=== PATIENT | female | born 1965 | race Caucasian/White ===

== ENCOUNTER 2022-12-28 12:13 | Emergency (ER) | payer OTHER, SELFPAY ==
[2022-12-28 12:15] VITALS: BP 152/77; PULSE 64; RESP 12; TEMP 36.3; O2SAT 100; BMI 23.2
--- NOTE | 2022-12-28 13:32 | EKG12_ITS ---
Test Reason : CP Blood Pressure : / mmHG Vent. Rate : 064 BPM Atrial Rate : 064 BPM P-R Int : 164 ms QRS Dur : 090 ms QT Int : 430 ms P-R-T Axes : 066 021 057 degrees QTc Int : 443 ms Normal sinus rhythm with sinus arrhythmia Normal ECG Confirmed by SOSA GOODE, ISAAK ([id number]), brands editor MICHAEL HERNÁNDEZ ([id number]) on 12/29/2022 11:00:45 AM Referred By: DELBERT/MYAH Confirmed By:ISAAK SWAN MD
--- NOTE | 2022-12-28 13:33 | EDS_ITS ---
HPI History of Present Illness Chief Complaint: Chest Pain Detail of Chief Complaint: Chest pain Informant: patient Narrative Narrative: Patient presents to the emergency department complaint of chest pain that she has had for about a week. Patient describes a continuous discomfort or pressure in her upper chest that radiates to her back and down her left arm. It is not made worse by activity or exertion. She thought maybe it was her fibromyalgia. She became concerned because it has not gone away and she does have a significant family history of heart disease and that her father had heart attacks in his 40s. Patient denies recent travel or surgery. No history of PE or DVT. 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 PFSH PFSH Medical History no medical history Allergy/AdvReac Type Severity Reaction Status Date / Time No Known Allergies Allergy Verified 12/28/22 12:16 Social History (Updated 07/03/20 @ 10:54 by Manjeet ACUÑA, PA) Smoking Status: Never smoker ROS ROS ED Review of Systems ROS Unobtainable: other Constitutional Constitutional ED: Reports lethargy; Denies chills, fever(s), sweats or weight loss Eyes Eyes: Denies blurry vision, change in vision or diplopia ENT ENT ED: Denies rhinorrhea or sore throat Cardiovascular Cardiovascular: Reports chest pain; Denies orthopnea or racing heartbeat Respiratory/Chest Respiratory/Chest: Denies cough, dyspnea, dyspnea on exertion, orthopnea or sputum Gastrointestinal Gastrointestinal: Denies abdominal pain, diarrhea, nausea or vomiting Genitourinary Genitourinary ED: Denies dysuria, hematuria or urinary frequency Musculoskeletal Musculoskeletal: Denies arthralgias, back pain, myalgias or neck pain Integumentary Denies abscess, Abrasions or rash Neurologic Neurologic: Denies headache(s) or weakness Psychiatric Psychiatric: Denies anxiety, depression or suicidal thoughts Endocrine Endocrinology: Denies polydipsia, polyphagia or polyuria Hematologic/Lymphatic Hematologic/Lymphatic: Denies easy bleeding, easy bruising or lymphadenopathy Allergic/Immunologic Allergic/Immunologic ED: Denies mouth swelling, tongue swelling or urticaria EXAM Physical Exam Const Vital Signs: 12/28/22 12:15 12/28/22 13:49 Temperature 97.3 F L Temperature Source Temporal Pulse Rate 64 Respiratory Rate 12 Blood Pressure 152/77 H Blood Pressure Mean 102 Pulse Ox 100 Oxygen Delivery Method Room Air Room Air Positive well nourished and well developed General Appearance ED: well developed and NAD HEENT Reports TM's clear and moist mucous membranes normocephalic and atraumatic; Negative for trauma or tenderness Tympanic Membrane ED: Yes TM's clear Eyes PERRL and EOMs intact bilaterally General Eye ED: Negative for pale conjunctiva or scleral icterus Neck no lymphadenopathy, supple and no JVD General: Negative for tenderness Chest Wall inspection of chest normal and palpation of chest normal Chest: Negative for tenderness Resp normal respiratory effort and clear to auscultation bilaterally Effort and Inspection: Negative for respiratory distress or pain with movement Auscultation: Negative for rhonchi, wheezes or diminished lung sounds Cardio regular rate, regular rhythm, S1 normal heart sound, S2 normal heart sound and no murmurs Peripheral Pulses: pulses 2+ throughout GI normal to inspection, nondistended, normoactive bowel sounds, soft to palpation, non-tender, non-distended and no masses Back/Spine no CVA tenderness and no thoracic nor lumbar tenderness Extremity normal to inspection General Extremety ED: Negative for edema General Extremity: Negative for edema Neuro oriented x3, CN's II-XII intact bilaterally, no sensory deficits noted and gait normal Sensorium / Orientation: awake, alert, oriented to person, oriented to place and oriented to time Motor Exam: strength 5/5 throughout and strength abnormal Psych mental status grossly normal Skin no rashes or lesions noted and no wounds Heart Score History: Slightly/Non-Suspicious ECG: Normal Age: >45 - <65 years Risk Factors: 1 or 2 Risk Factors Troponin: </= Normal Limit Score: 2 MDM MDM MDM Narrative Medical decision making narrative: Patient presents to the emergency department with complaint of chest pain ongoing for a week. She has history of elevated cholesterol and history of fibromyalgia. Patient with family history of heart disease. IV line established on arrival. Patient placed on a laborer vegetable farm. Patient will be given aspirin. We will give her nitroglycerin ascertain if this helps alleviate her discomfort. EKG obtained arrival showed a sinus rhythm with a ventricular rate of 64 bpm with occasional PACs. In the differential would be acute coronary syndrome versus musculoskeletal pain versus PE, versus infectious etiology which I feel is less likely. Patient had essentially normal work-up here in the department clued EKG as well as CBC with differential and chemistries and normal troponin. She had a normal D-dimer. Patient's heart score is a 2. I feel she can be discharged to home. I feel she is low risk for acute coronary syndrome. Patient has had continuous pain for a week that is not exertional. Patient advised to follow-up with her primary care physician within next 3 to 5 days for Lab Data Attestation: I reviewed the patient's lab results. Labs: Laboratory Results - last 24 hr 12/28/22 13:43 WBC 5.4 RBC 3.70 L Hgb 11.9 L Hct 35.3 L MCV 95.4 MCH 32.2 H MCHC 33.7 RDW Std Deviation 46.5 H RDW Coeff of Jayson 13.2 Plt Count 255 MPV 10.5 Immature Gran % (Auto) 0.200 Neut % (Auto) 54.6 Lymph % (Auto) 37.6 [place] % (Auto) 5.4 Eos % (Auto) 1.3 Baso % (Auto) 0.9 Absolute Neuts (auto) 2.9 Absolute Lymphs (auto) 2.01 Nucleated RBC % 0 D-Dimer Quant (PE/DVT) 0.45 Sodium 139 Potassium 3.8 Chloride 109 H Carbon Dioxide 25.0 Anion Gap 5 BUN 13 Creatinine 0.72 Estim Creat Clear Calc 85.91 Est GFR (MDRD) Af Amer 106 Est GFR (MDRD) Non-Af 88 BUN/Creatinine Ratio 17.9 Glucose 95 Calcium 9.2 Troponin I High Sens 3 Radiography Diagnostic Testing: Clinical Impression(s) from Imaging Studies Chest X-Ray 12/28/22 13:50 IMPRESSION: No acute abnormality is seen. Electronically Signed: Petr Gold MD at 14:08 EDT , 1 view chest x-ray obtained interpreted by myself as no acute infiltrate or pneumothorax or acute disease process. Radiology in agreement. EKG Initial EKG: Attestation: I personally reviewed and interpreted this EKG as follows: Comments: Sinus rhythm with a ventricular rate of 64 bpm with occasional PACs Discharge Plan Triage Chief Complaint: Chest Pain Other Complaint: Headache Nausea/Vomiting ED Provider: Marty Lynn Dx/Rx/DC Orders Clinical Impression: Chest pain Instructions: ED Chest Pain, Uncertain Cause Primary Care Provider: KEYLA JANE Referrals: KEYLA JANE DO [Primary Care Provider] - 3-5 Days Disposition Disposition: Home, Self Care
[2022-12-28] MEDS: Aspirin 81 MG TAB.CHEW 324 MG PO (13:43)
[2022-12-28] MEDS: 0.9% Normal Saline 1,000 ML 150 ML IV (13:44)
--- NOTE | 2022-12-28 13:50 | RAD_ITS ---
STUDY: X-RAY CHEST REASON FOR EXAM: Female, 57 years old. Chest pain and chest pressure. Left arm. TECHNIQUE: Single AP portable view of the chest. COMPARISON: None. FINDINGS: The lungs are clear and expanded. There is no demonstrated pleural abnormality. Normal size heart. Normal mediastinum and kehinde. Normal visualized pulmonary arteries. Normal visualized aortic arch and descending thoracic aorta. There are degenerative changes of the visualized thoracic spine. Normal visualized ribs, clavicles, and shoulders. There is no demonstrated abnormality of the visualized soft tissue structures of the upper abdomen. RAD/Chest 1 View (Portable) IMPRESSION: No acute abnormality is seen. Electronically Signed: Petr Gold MD at 14:08 EDT ,
[2022-12-28 13:56] LABS: Absolute Lymphocyte Count 2.01 X10^3/uL (0.83-4.51); Absolute Neutrophil Count 2.9 X10^3/uL (2.0-7.7); Basophil# 0.05 X10^3/uL; Basophil% 0.9 % (0-1); Eosinophil# 0.07 X10^3/uL; Eosinophils% 1.3 % (0-5); Hematocrit 35.3 % (37-47); Hemoglobin 11.9 g/dL (12.0-15.0); Lymphocyte # 2.01 X10^3/ul (0.83-4.51); Lymphocyte % 37.6 % (19-41); Mean Corp Hgb Conc 33.7 g/dL (32-36); Mean Corpuscular Hgb 32.2 pg (27.0-32.0); Mean Corpuscular Volume 95.4 fL (81-99); Mean Platelet Vol. 10.5 fl (6.2-12.0); Monocyte# 0.29 X10^3/uL; Monocyte% 5.4 % (0-10); NRBC Flagged by Analyzer 0 % (0-5); Neutrophil # 2.92 X10^3/uL (2.7-7.7); Neutrophil % 54.6 % (47-70); Platelet Count 255 K/mm3 (150-450); RBC Distribution Width CV 13.2 % (11.6-14.6); RBC Distribution Width SD 46.5 fl (35.1-43.9); White Blood Count 5.4 K/mm3 (4.4-11.0)
[2022-12-28 14:03] LABS: D-Dimer Quantitative (DVT/PE) 0.45 FEU/ug/m (0.27-0.49)
--- NOTE | 2022-12-28 14:09 | ED.RN ---
pt refused nitro. Dr. Lynn notified
[2022-12-28 14:14] LABS: Anion Gap 5 (5-15); BUN 13 mg/dL (7-18); BUN/Creat Ratio 17.9 RATIO (10-20); Calcium,Total 9.2 mg/dL (8.5-10.1); Chloride 109 mmol/L (98-107); Creatinine, Serum 0.72 mg/dL (0.55-1.02); EST Glomerular Filtration Rate 88 mL/min (>60); Est Glom Filt Rate - Afr Amer 106 mL/min (>60); Estimated Creatinine Clearance 85.91 ml/min; Glucose 95 mg/dL (74-106); Potassium 3.8 mmol/L (3.5-5.1); Sodium Level 139 mmol/L (136-145); Troponin-I HS (w/2H Reflex) 3 pg/mL (3.0-54.0)
[2022-12-28 15:49] LABS: Reflex Troponin-HS? (from REC) Y
[2022-12-28 16:18] LABS: Troponin-I HS 12 pg/mL (3.0-54.0)
== END 2022-12-28 14:53 | disposition home or self-care (01) ==
PROVIDERS: Emergency Provider Emergency Medicine; PCP Family Medicine; Visit Provider Emergency Medicine
DX: R07.9 Chest pain, unspecified (principal); R11.2 Nausea with vomiting, unspecified; M79.7 Fibromyalgia; E78.00 Pure hypercholesterolemia, unspecified
CPT/HCPCS: 71045; 80048; 84484; 85025; 85379; 93005; 96360; 99285; J7030; A4216